=== PATIENT | female | born 1965 | race Two or more races ===

== ENCOUNTER 2021-10-29 21:17 | Emergency (ER) | payer MEDICAID, OTHER ==
[~2021-10-29] VITALS: Ht 165.1 cm; Wt 73.5 kg
--- NOTE | 2021-10-29 22:15 | NUR ---
TO ER BED 13. BRIANNA C/O ETOH PT FOUND LYING ON A SIDEWALK. ADMITS TO DRINKING. DENIES ANY MEDICAL COMPLAINTS. CONNECTED TO MONITOR. VSS.
[2021-10-29 23:54] LABS: BASOPHILS # (AUTO) 0.1 K/uL (0.0-0.2); BASOPHILS % (AUTO) 2.7 % (0.0-2.0); EOSINOPHILS % (AUTO) 1.1 % (0.0-6.0); HEMATOCRIT 30 % (33-45); HEMOGLOBIN 9.7 g/dL (11.5-14.8); LYMPHOCYTES # (AUTO) 1.2 K/uL (0.8-4.8); LYMPHOCYTES % (AUTO) 50.6 % (20.0-44.0); MEAN CORPUSCULAR HGB CONC 32 g/dl (31.0-36.0); MEAN CORPUSCULAR VOLUME 92 fL (82-100); MONOCYTES # (AUTO) 0.2 K/uL (0.1-1.30); MONOCYTES % (AUTO) 8.2 % (2.0-12.0); NEUTROPHILS # (AUTO) 0.9 K/uL (1.8-8.9); NEUTROPHILS % (AUTO) 37.4 % (43.0-81.0); PLATELET COUNT (AUTO) 83 K/uL (150-450); RED BLOOD CELL COUNT(AUTO) 3.29 MIL/uL (4.0-5.2); WHITE BLOOD COUNT (AUTO) 2.4 K/uL (4.3-11.0)
--- NOTE | 2021-10-30 00:02 | NUR ---
evelina (Daughter) for pickup
[2021-10-30 00:16] LABS: CALCIUM, SERUM 8.1 mg/dL (8.5-10.1); CARBON DIOXIDE 33 mmol/L (21-32); CHLORIDE 107 mmol/L (98-107); CREATININE 0.6 mg/dL (0.6-1.3); GLUCOSE 105 mg/dL (74-106); POTASSIUM 3.3 mmol/L (3.5-5.1); SODIUM SERUM 145 mmol/L (136-145); UREA NITROGEN, BLOOD 5 mg/dL (7-18)
[2021-10-30 00:23] LABS: ALANINE AMINOTRANSFERASE 32 U/L (12-78); ALBUMIN 3.1 g/dL (3.4-5.0); ALCOHOL, BLOOD 455 mg/dL (0-0); ALKALINE PHOSPHATASE 118 U/L (46-116); ASPARTATE AMINOTRANSFERASE 62 U/L (15-37); BILIRUBIN,DIRECT 0.3 mg/dL (0.0-0.2); BILIRUBIN,TOTAL 0.7 mg/dL (0.2-1.0); TOTAL PROTEIN, SERUM 8.7 g/dL (6.4-8.2)
[2021-10-30 00:26] LABS: ACETAMINOPHEN < 2 ug/ml (10-30)
--- NOTE | 2021-10-30 01:25 | NUR ---
PROVIDED PT WITH WARM BLANKETS, WILL CONTINUE TO MONITOR.
--- NOTE | 2021-10-30 03:05 | NUR ---
PT AMBULATED TO BATHROOM, STEADY GAIT NOTED.
--- NOTE | 2021-10-30 04:42 | NUR ---
CALLED DAUGHTER FOR [employer] AS A SECOND LANGUAGE TEACHER BUT NOT ANSWER. MESSAGE LEFT TO CALL BACK
--- NOTE | 2021-10-30 05:34 | NUR ---
LEFT A MESSAGE FOR TRISHA, DAUGHTER TO PICK HER UP
--- NOTE | 2021-10-30 06:58 | NUR ---
Patient discharged to home in stable condition. Written and verbal after care instructions given. Patient verbalizes understanding of instruction. Pt ambulatory with a steady gait. Pt is picked up by her daugther, Juliana
[2021-10-30 07:08] VITALS: BP 125/70
== END 2021-10-30 07:00 | disposition home or self-care (01) ==
LOC: ER 21:20
DX: F10.129 Alcohol abuse with intoxication, unspecified (principal); Y90.8 Blood alcohol level of 240 mg/100 ml or more
CPT/HCPCS: 36415; 80048-TC; 80076-TC; 85025-TC; G0480